=== PATIENT | female | born 1970 | race African-American/Black ===

== ENCOUNTER 2018-09-30 16:54 | Emergency (ER) | payer OTHER, MEDICAID ==
[~2018-09-30] VITALS: Ht 160 cm; Wt 120.7 kg
[2018-09-30 17:03] VITALS: Ht 160 cm; Wt 120.7 kg
[2018-09-30 19:43] VITALS: BP 143/93
== END 2018-09-30 19:43 | disposition left against medical advice (07) ==
LOC: ED 16:54
DX: Z53.21 Procedure and treatment not carried out due to patient leaving prior to being seen by health care provider (principal)

== ENCOUNTER 2019-06-09 19:30 | Emergency (ER) | payer MEDICAID, OTHER ==
[~2019-06-09] VITALS: Ht 160 cm; Wt 121.1 kg
[2019-06-09 19:43] VITALS: Ht 160 cm; Wt 121.1 kg
[2019-06-09 20:37] LABS: BASOPHIL % 0.5 % (0-2); PLATELET COUNT 325 x10^3mcL (130-400)
[2019-06-09 20:44] LABS: RED CELL DISTRIBUTION WIDTH 18.4 % (11.5-14.5)
[2019-06-09 22:17] VITALS: BP 143/85
== END 2019-06-09 22:17 | disposition home or self-care (01) ==
LOC: ED 19:30
PROVIDERS: Emergency Medicine
DX: R04.0 Epistaxis (principal); I10 Essential (primary) hypertension; Z88.1 Allergy status to other antibiotic agents; Z88.2 Allergy status to sulfonamides
CPT/HCPCS: 36415